=== PATIENT | female | born 1955 | race Caucasian/White ===

== ENCOUNTER 2024-03-07 16:02 | Emergency (ER) | payer BC ==
[2024-03-07 17:45] LABS: Absolute Eosinophils 0.1 K/uL (0-0.5); Absolute Lymphocytes (CBC) 1.3 K/uL (0.7-4.9); Absolute Monocytes 0.3 K/uL (0.1-1.3); Absolute Neutrophil 4.7 K/uL (1.8-8.0); Basophils % 0.4 % (0-1.3); Eosinophils % 1.7 % (0-4.4); Hematocrit 37.9 % (36.0-45.0); Hemoglobin 12.2 g/dL (12.0-15.0); Lymphocytes % 20.3 % (15.3-44.8); MCH 25.6 pg (27.0-35.0); MCHC 32.3 g/dL (32.0-36.0); MCV 79.3 fL (80-100); Monocytes % 4.9 % (3.3-12.3); Neutrophils % 72.7 % (41.7-73.7); Platelets 171 thou/uL (152-406); RBC Red Blood Cell Count 4.78 M/uL (3.86-4.86); Red Cell Distribution Width 19.7 % (12.1-15.2)
[2024-03-07] MEDS ORDERED: LORazepam 2 MG/ML VIAL ONE (17:48)
[2024-03-07] MEDS ORDERED: ONDANSETRON 4 MG/2 ML VIAL ONE (17:48)
[2024-03-07] MEDS ORDERED: NA CHLORIDE 0.9% 1,000 ML ONE (17:49)
[2024-03-07] MEDS ORDERED: chlordiazePOXIDE HCl 25 MG CAP ONE (17:49)
[2024-03-07 17:58] LABS: Sqamous Epithelial <5 /HPF (None Seen); Urine Bacteria <20 /HPF (<20); Urine Bilirubin 1+ (Negative); Urine Blood Negative (Negative); Urine Clarity Extremely Turbid (Clear); Urine Color Yellow (Yellow); Urine Culture Reflex Order NOT NEEDED; Urine Glucose NEGATIVE (Negative); Urine Ketones 2+ (Negative); Urine Microscopic Reflex YN ORDER UMIC; Urine Mucus Slight /HPF (None Seen); Urine Nitrite NEGATIVE (Negative); Urine Protein TRACE (Negative); Urine RBC <5 /HPF (None Seen); Urine Urobilinogen 2+ (Normal); Urine pH 5.5 (5.0-7.0)
[2024-03-07 18:10] LABS: Albumin 4.2 g/dL (3.4-5.0); Albumin/Globulin Ratio 1.2 (1.1-1.8); Bilirubin Total 1.2 mg/dL (0.2-1.0); Globulin 3.4 g/dL (2.3-3.5); Protein, Total 7.6 g/dL (6.4-8.2)
[2024-03-07] MEDS ORDERED: Ringers Lactate 1,000 ML IV ONE (18:29)
[2024-03-07] MEDS ORDERED: POTASSIUM 25 MEQ EFFERV TAB ONE (18:29)
--- NOTE | 2024-03-07 18:57 | EDPHYS ---
Physician Documentation [facility] Name: Barbie Hope Age: 68 yrs Sex: Female : 1955 Arrival Date: 03/07/2024 Time: 16:02 Bed 18 Private MD: ED Physician Amina Abel HPI: 03/07 16:53 This 68 yrs old Female presents to ER via Ambulatory with complaints of Vomiting, sp3 Decreased Appetite, Alcohol Withdrawal. 16:53 68-year-old female with history of hypertension and off-and-on alcoholism with recent sp3 bout of alcohol use after her 2 months ago now presents to the ED and withdrawal symptoms coupled with dehydration. She denies any pain but states she is extremely nauseated and is not able to hold p.o. intake down. She also reports decreased urine output. She denies any headache, fever, URI symptoms, chest pain, shortness of breath, abdominal pain, diarrhea, rash, bleeding, or any other signs or symptoms on ROS at this time.. Historical: - Allergies: 16:30 Morphine; db - PMHx: 16:30 Hypertensive disorder; db - PSHx: 16:30 COLON RESECTION; db - Immunization history:: Adult Immunizations unknown. - Infectious Disease History:: Denies. - Social history:: Smoking status: Patient denies any tobacco usage or history of. Patient uses alcohol. ROS: 16:54 Constitutional: Negative for fever, chills, and weight loss, Eyes: Negative for injury, sp3 pain, redness, and discharge, ENT: Negative for injury, pain, and discharge, Neck: Negative for injury, pain, and swelling, Cardiovascular: Negative for chest pain, palpitations, and edema, Respiratory: Negative for shortness of breath, cough, wheezing, and pleuritic chest pain, Back: Negative for injury and pain, MS/Extremity: Negative for injury and deformity, Skin: Negative for injury, rash, and discoloration, Psych: Negative for depression, anxiety, suicide ideation, homicidal ideation, and hallucinations, Allergy/Immunology: Negative for hives, rash, and allergies, Endocrine: Negative for neck swelling, polydipsia, polyuria, polyphagia, and marked weight changes, 16:54 All other systems are negative, Exam: 16:54 Constitutional: This is a well developed, well nourished patient who is awake, alert, sp3 and in no acute distress. Head/Face: Normocephalic, atraumatic. ENT: Nares patent. No nasal discharge, no septal abnormalities noted. External auditory canals are clear. Oropharynx with no redness, swelling, or masses, exudates, or evidence of obstruction, uvula midline. Mucous membranes moist. Neck: Trachea midline, no thyromegaly or masses palpated, and no cervical lymphadenopathy. Supple, full range of motion without nuchal rigidity, or vertebral point tenderness. No Meningismus. Chest/axilla: Normal chest wall appearance and motion. Nontender with no deformity. No lesions are appreciated. Respiratory: Lungs have equal breath sounds bilaterally, clear to auscultation and percussion. No rales, rhonchi or wheezes noted. No increased work of breathing, no retractions or nasal flaring. Abdomen/GI: Soft, non-tender, with normal bowel sounds. No distension or tympany. No guarding or rebound. No evidence of tenderness throughout. Back: No spinal tenderness. No costovertebral tenderness. Full range of motion. Skin: Warm, dry with normal turgor. Normal color with no rashes, no lesions, and no evidence of cellulitis. MS/ Extremity: Pulses equal, no cyanosis. Neurovascular intact. Full, normal range of motion. Neuro: Awake and alert, GCS 15, oriented to person, place, time, and situation. Cranial nerves II-XII grossly intact. Motor strength 5/5 in all extremities. Sensory grossly intact. Cerebellar exam normal. Normal gait. 16:54 Cardiovascular: Rate: tachycardic, 16:54 Psych: Patient anxious and appears to be withdrawing.. Vital Signs: 16:30 BP 158 / 89; Pulse 117; Resp 18; Temp 97.6; Pulse Ox 99% ; Weight 81.65 kg; Height 5 db ft. 6 in. ; 19:10 BP 144 / 84; Pulse 99; Resp 18; Pulse Ox 100% ; rg5 16:30 Body Mass Index 29.05 (81.65 kg, 167.64 cm) db MDM: 16:40 Medical Screening Exam initiated sp3 16:55 Data reviewed: vital signs, nurses notes, lab test result(s). ED course: 68-year-old sp3 female with generalized weakness and symptoms of withdrawal. Differential diagnosis includes alcohol withdrawal, electrolyte abnormality, dehydration, lactic acidosis, among others. Workup will include general labs including lactate, IV fluids and Ativan IV and Librium p.o. Disposition pending workup and patient course with possible discharge if patient is improved.. 18:23 ED course: Patient feels better after medication and interventions. Second liter of IV sp3 fluids have been ordered as lactated Ringer's. Lactate 1.1. Patient does have hyaline casts in her urine indicating probable dehydration. Potassium is also low. We will replenish the potassium and discharge patient on Librium once treatment is complete.. 03/07 16:50 Order name: CBC with Diff; Complete Time: 18:12 sp3 03/07 16:50 Order name: CMP; Complete Time: 18:12 sp3 03/07 16:50 Order name: Lipase; Complete Time: 18:12 sp3 03/07 16:50 Order name: Urinalysis w/ reflexes; Complete Time: 18:12 sp3 03/07 16:50 Order name: Lactate w/ 2H reflex if indic.; Complete Time: 18:12 sp3 03/07 16:50 Order name: IV Saline Lock; Complete Time: 17:41 sp3 03/07 16:50 Order name: Labs collected and sent; Complete Time: 17:41 sp3 Administered Medications: 17:15 Drug: Ativan IVP 1 mg IVP once Route: IVP; Site: right antecubital; db 18:44 Follow up: Response: No adverse reaction bp 17:15 Drug: Librium - chlordiazePOXIDE PO 50 mg PO once Route: PO; db 18:44 Follow up: Response: No adverse reaction bp 17:30 Drug: Ondansetron IVP 4 mg IVP once; over 2 minutes Route: IVP; Site: right antecubital;db 18:45 Follow up: Response: No adverse reaction bp 17:30 Drug: NS 0.9% IV 1000 ml IV at 1 bolus Per protocol; to be given as a bolus over 60 db minutes Route: IV; Rate: 1 bolus; Site: right antecubital; 19:10 Follow up: IV Status: Completed infusion; IV Intake: 1000ml rg5 18:30 Drug: Potassium PO Effervescent Tablet 50 mEq PO once; dissolve in 4 ounces of water or bp juice Route: PO; 18:45 Follow up: Response: No adverse reaction bp 18:30 Drug: Ringers - Lactated Ringers Solution IV 1000 ml IV at bolus bolus; to be given as bp a bolus over 30 minutes Route: IV; Rate: bolus; Site: right antecubital; 19:15 Follow up: IV Status: Completed infusion; IV Intake: 1000ml rg5 Disposition Summary: 03/07/24 18:57 Discharge Ordered Notes: Location: Home sp3 Condition: Stable sp3 Diagnosis - Alcohol withdrawal, dehydration, nausea sp3 Followup: sp3 - With: Private Physician - When: Upon discharge from the Emergency Department - Reason: Continuance of care Discharge Instructions: - Discharge Summary Sheet sp3 - Alcohol Withdrawal Syndrome sp3 Forms: - Medication Reconciliation Form sp3 - Antibiotic Education sp3 - Prescription Opioid Use sp3 - Patient Portal Instructions sp3 - Leadership Thank You Letter sp3 Prescriptions: - chlordiazepoxide HCl 25 mg Oral capsule - take 3 capsule ORAL route every 3 hours for 4 doses as needed for agitation; sp3 until symptoms of withdrawal controlled or stopped; 15 capsule; Refills: 0, Product Selection Permitted - ondansetron 8 mg Oral Tablet,disintegrating - take 1 tablet ORAL route every 12 hours; 15 tablet; Refills: 0, Product sp3 Selection Permitted Signatures: Dispatcher [employer] Sudhakar Dumont, RN RN Amina Stanford MD MD sp3 Karen Schmid RN RN db Gallardo, Rommel RN rg5 Corrections: (The following items were deleted from the chart) 16:30 16:30 Allergies: No Known Allergies; ulices elena
--- NOTE | 2024-03-07 18:57 | ER ---
Nurse's Notes [facility] Name: Barbie Hope Age: 68 yrs Sex: Female : 1955 Arrival Date: 03/07/2024 Time: 16:02 Bed 18 Private MD: Diagnosis: Alcohol withdrawal, dehydration, nausea Presentation: 03/07 16:28 Chief complaint: Patient states: NOT ABLE TO TOLERATE FOOD X 7 DAYS STATES DETOXING db FROM ALCOHOL X 7 DAYS. STATES UNABLE TO KEEP LIQUIDS DOWN. FEELS SHAKY AND WEAK. 16:30 Coronavirus screen: Client denies travel out of the [place] in the last 14 days. At this db time, the client does not indicate any symptoms associated with coronavirus-19. Ebola Screen: Patient negative for fever greater than or equal to 101.5 degrees Fahrenheit, and additional compatible Ebola Virus Disease symptoms Patient denies exposure to infectious person. Patient denies travel to an Ebola-affected area in the 21 days before illness onset. No symptoms or risks identified at this time. Initial Sepsis Screen: Does the patient meet any 2 criteria? No. Patient's initial sepsis screen is negative. Does the patient have a suspected source of infection? No. Patient's initial sepsis screen is negative. Risk Assessment: Do you want to hurt yourself or someone else? Patient reports no desire to harm self or others. Onset of symptoms was March 01, 2024. 16:30 Method Of Arrival: Ambulatory db 16:30 Acuity: CASSY 3 db 16:50 Acuity: CASSY 2 hb Triage Assessment: 16:33 General: Appears in no apparent distress. comfortable, Behavior is calm, cooperative. db Pain: Denies pain. Neuro: Level of Consciousness is awake, alert, obeys commands, Oriented to person, place, time, situation. Respiratory: Airway is patent Respiratory effort is even, unlabored, Respiratory pattern is regular, symmetrical. GI: Reports nausea, vomiting. Historical: - Allergies: 16:30 Morphine; db - PMHx: 16:30 Hypertensive disorder; db - PSHx: 16:30 COLON RESECTION; db - Immunization history:: Adult Immunizations unknown. - Infectious Disease History:: Denies. - Social history:: Smoking status: Patient denies any tobacco usage or history of. Patient uses alcohol. Screenin:04 [facility] ED Fall Risk Assessment (Adult) History of falling in the last 3 months, bp including since admission No falls in past 3 months (0 pts) Confusion or Disorientation No (0 pts) Intoxicated or Sedated No (0 pts) Impaired Gait No (0 pts) Mobility Assist Device Used No (0 pt) Altered Elimination No (0 pt) Score/Fall Risk Level 0 - 2 = Low Risk Oriented to surroundings. Abuse screen: Denies threats or abuse. Denies injuries from another. Nutritional screening: No deficits noted. Tuberculosis screening: No symptoms or risk factors identified. Assessment: 16:33 General: Appears distressed, Behavior is cooperative, appropriate for age, anxious. bp Pain: Denies pain. Neuro: Level of Consciousness is awake, alert, obeys commands, Oriented to Appropriate for age Reports weakness GENERALIZED. Cardiovascular: Rhythm is sinus tachycardia. Respiratory: No deficits noted. GI: Reports nausea. GI: Abdomen is non-distended. : No signs and/or symptoms were reported regarding the genitourinary system. EENT: No deficits noted. Derm: No deficits noted. Musculoskeletal: No deficits noted. 18:30 Reassessment: Patient appears in no apparent distress at this time. Patient is alert, bp oriented x 3, equal unlabored respirations, skin warm/dry/pink. DC ON HOLD FOR IVF COMPLETION. 19:10 General: Appears in no apparent distress. comfortable, Behavior is calm, cooperative, rg5 appropriate for age. Pain: Denies pain. Neuro: Level of Consciousness is awake, alert, obeys commands. Cardiovascular: Patient's skin is warm and dry. Respiratory: Airway is patent Trachea midline Respiratory effort is even, unlabored, Respiratory pattern is regular, symmetrical. GI: Abdomen is round non-distended. : No signs and/or symptoms were reported regarding the genitourinary system. EENT: No deficits noted. Derm: Skin is intact, Skin is dry, Skin is normal, Skin temperature is warm. Musculoskeletal: Circulation, motion, and sensation intact. Range of motion: intact in all extremities. Vital Signs: 16:30 BP 158 / 89; Pulse 117; Resp 18; Temp 97.6; Pulse Ox 99% ; Weight 81.65 kg; Height 5 db ft. 6 in. ; 19:10 BP 144 / 84; Pulse 99; Resp 18; Pulse Ox 100% ; rg5 16:30 Body Mass Index 29.05 (81.65 kg, 167.64 cm) db ED Course: 16:05 Patient arrived in ED. ra3 16:05 Bernard Ventura MD is Attending Physician. ec2 16:25 Attending Physician role handed off by Bernard Ventura MD sp3 16:25 Amina Abel MD is Attending Physician. sp3 16:29 Arm band placed on Patient placed in an exam room. db 16:32 Triage completed. db 16:36 Sudhakar Márquez, SAVANNAH is Primary Nurse. bp 17:41 Inserted saline lock: 22 gauge in right antecubital area, using aseptic technique. nh2 Blood collected. Flushed with 10 mL NS. 17:41 CBC with Diff Sent. nh2 17:41 CMP Sent. nh2 17:41 Lipase Sent. nh2 17:41 Urinalysis w/ reflexes Sent. nh2 17:41 Lactate w/ 2H reflex if indic. Sent. nh2 19:04 Patient has correct armband on for positive identification. bp 19:10 Provided Education on: post er care. rg5 19:10 No provider procedures requiring assistance completed. rg5 19:47 IV discontinued, bleeding controlled, No redness/swelling at site. Pressure dressing rg5 applied. Administered Medications: 17:15 Drug: Ativan IVP 1 mg IVP once Route: IVP; Site: right antecubital; db 18:44 Follow up: Response: No adverse reaction bp 17:15 Drug: Librium - chlordiazePOXIDE PO 50 mg PO once Route: PO; db 18:44 Follow up: Response: No adverse reaction bp 17:30 Drug: Ondansetron IVP 4 mg IVP once; over 2 minutes Route: IVP; Site: right antecubital;db 18:45 Follow up: Response: No adverse reaction bp 17:30 Drug: NS 0.9% IV 1000 ml IV at 1 bolus Per protocol; to be given as a bolus over 60 db minutes Route: IV; Rate: 1 bolus; Site: right antecubital; 19:10 Follow up: IV Status: Completed infusion; IV Intake: 1000ml rg5 18:30 Drug: Potassium PO Effervescent Tablet 50 mEq PO once; dissolve in 4 ounces of water or bp juice Route: PO; 18:45 Follow up: Response: No adverse reaction bp 18:30 Drug: Ringers - Lactated Ringers Solution IV 1000 ml IV at bolus bolus; to be given as bp a bolus over 30 minutes Route: IV; Rate: bolus; Site: right antecubital; 19:15 Follow up: IV Status: Completed infusion; IV Intake: 1000ml rg5 Medication: 19:10 VIS not applicable for this client. rg5 Intake: 19:10 IV: 1000ml; Total: 1000ml. rg5 19:15 IV: 1000ml; Total: 2000ml. rg5 Outcome: 18:57 Discharge ordered by MD. sp3 19:47 Discharged to home via wheelchair, rg5 19:47 Condition: stable 19:47 Discharge instructions given to patient, family, Instructed on discharge instructions, follow up and referral plans. Demonstrated understanding of instructions, follow-up care, medications, Prescriptions given X 2, 19:55 Patient left the ED. rg5 Signatures: Lana Campa RN RN Sudhakar Bethea RN RN Amina Stanford MD MD sp3 Karen Schmid RN RN db Corral, Edwin, MD MD ec2 Sharon Deleon ra3 Matt Ambriz RN RN rg5 Marcos Montgomery Jr [facility] Corrections: (The following items were deleted from the chart) 16:30 16:30 Allergies: No Known Allergies; ulices db
[2024-03-07 20:18] VITALS: TEMP 97.6
[2024-03-07 20:21] VITALS: BP 144/84; O2SAT 100
== END 2024-03-07 19:55 | disposition home or self-care (01) ==
LOC: ER 16:02
DX: F10.239 Alcohol dependence with withdrawal, unspecified (principal); E86.0 Dehydration; R11.0 Nausea; I10 Essential (primary) hypertension; Z88.5 Allergy status to narcotic agent
CPT/HCPCS: 36415; 80053; 81001; 83605; 83690; 85025; 96361; 96365; 96375; 99284; J2405; J7030; J7120

== ENCOUNTER 2024-03-11 19:47 | Emergency (ER) | payer BC ==
[2024-03-11] MEDS ORDERED: NA CHLORIDE 0.9% 1,000 ML ONE (20:46)
[2024-03-11] MEDS ORDERED: DIAZEPAM 2 MG TABLET ONE (20:46)
[2024-03-11 20:55] LABS: Absolute Lymphocytes (CBC) 0.2 K/uL (0.7-4.9); Absolute Monocytes 0.3 K/uL (0.1-1.3); Absolute Neutrophil 1.4 K/uL (1.8-8.0); Basophils % 0.4 % (0-1.3); Eosinophils % 0.6 % (0-4.4); Hematocrit 31.6 % (36.0-45.0); Lymphocytes % 9.9 % (15.3-44.8); MCHC 31.7 g/dL (32.0-36.0); MCV 81.9 fL (80-100); MPV 8.5 fL (7.6-11.3); Monocytes % 15.4 % (3.3-12.3); Neutrophils % 73.7 % (41.7-73.7); Nucleated Red Blood Cells % 0.2 % (0-0); Platelets 99 thou/uL (152-406); RBC Red Blood Cell Count 3.86 M/uL (3.86-4.86); Red Cell Distribution Width 22.8 % (12.1-15.2)
[2024-03-11 20:56] LABS: Anisocytosis 2+; Blood Morphology Comment NOTED (NOT SEEN); Platelet Estimate DECR; White Blood Cell Scan OK (OK)
[2024-03-11 21:00] LABS: PT Prothrombin Time 11.5 SECONDS (9.4-12.5); PTT, Activated Partial Thromb 28.2 SECONDS (24.3-36.9); Protime INR 1.03
[2024-03-11 21:09] LABS: Anion Gap 7.9 mEq/L (5.0-15.0); Potassium 3.9 mEq/L (3.5-5.1)
--- NOTE | 2024-03-11 21:19 | RAD REPORT ---
EXAMINATION: CT HEAD WITHOUT CONTRAST CT CERVICAL SPINE WITHOUT CONTRAST CLINICAL INDICATION: Head and neck injury status post fall. Head and neck pain TECHNIQUE: Axial CT images from the skull base to the vertex without intravenous contrast. Axial CT i mages through the cervical spine were obtained without intravenous contrast. Sagittal and coronal reformatted images were created from the data set. Coronal and sagittal reformatted images were creat ed from the data set. One or more of the following dose reduction techniques were used: Automated exposure control, adjustment of the mA and/or kV according to patient size, and/or iterative reconstr uction. Unless otherwise specified, incidental findings do not require dedicated imaging follow-up. [id number]. Comparison: none FINDINGS: Left scalp hematoma. An intracranial bleed is not seen. Ventricles are normal in caliber. No significant hypodensity within the brain No extra-axial fluid collection. No fluid within the sinuses/mastoids No fracture or dislocation is seen involving the cervical spine. Mild anterior subluxation C3 on C4. Mild posterior subluxation C4 on C5, C5 on C6 and C6 on C7. No si gnificant soft tissue swelling noted. Spondylosis mid cervical spine. IMPRESSION: No acute intracranial abnormality noted A cervical fracture is not seen. If the patient continues to have symptoms to suggest acute LINEN MANAGER/spinal/ligamentous pathology then MRI would be recommended
--- NOTE | 2024-03-11 22:01 | EDPHYS ---
Physician Documentation [facility] Name: Barbie Hope Age: 68 yrs Sex: Female : 1955 Arrival Date: 03/11/2024 Time: 19:47 Bed 22 Private MD: ED Physician Reynaldo Blum HPI: 03/11 20:16 This 68 yrs old Female presents to ER via Ambulatory with complaints of Head Injury rn With LOC-Adult, Headache, Dizziness, General Weakness, Vomiting. 20:16 The patient or guardian reports injury. The complaints affect the left occipital area. rn Onset: The symptoms/episode began/occurred 10 day(s) ago. Severity of symptoms: At their worst the symptoms were mild, in the emergency department the symptoms are unchanged. The patient has not experienced similar symptoms in the past. Patient reports drinking heavily last week, is alcoholic, fell twice and hit head 10 days ago. Since then has noticed a bump to the left posterior scalp and her hairdresser noticed ecchymosis posterior to the left ear. Reports headache, generalized weakness, tremor, vomiting, blurred vision and confusion since head injury. No blood thinners. No LOC at the time. Fall from same level.. Historical: - Allergies: 19:59 Morphine; hb - PMHx: 19:59 Hypertensive disorder; hb - PSHx: 19:59 colon resection; hb - Immunization history:: Adult Immunizations up to date. - Infectious Disease History:: Denies. - Immunization history: Last tetanus immunization: unknown. - Social history:: Smoking status: Patient denies any tobacco usage or history of. - Family history:: not pertinent. - Hospitalizations: : No recent hospitalization is reported. ROS: 20:16 Constitutional: Negative for fever, chills, and weight loss, Eyes: Negative for injury, rn pain, redness, and discharge, ENT: Negative for injury, pain, and discharge, Neck: Positive for mild neck pain Cardiovascular: Negative for chest pain, palpitations, and edema, Respiratory: Negative for shortness of breath, cough, wheezing, and pleuritic chest pain, Abdomen/GI: Positive for nausea Back: Negative for injury and pain, : Negative for injury, bleeding, discharge, and swelling, MS/Extremity: Negative for injury and deformity, Skin: Negative for injury, rash, and discoloration, Neuro: Positive for headache and generalized weakness Exam: 20:16 Constitutional: This is a well developed, well nourished patient who is awake, alert, rn and in no acute distress. Head/Face: Normocephalic, left posterior scalp hematoma with ecchymosis postauricular left side. Eyes: Pupils equal round and reactive to light, extra-ocular motions intact. Lids and lashes normal. Conjunctiva and sclera are non-icteric and not injected. Cornea within normal limits. Periorbital areas with no swelling, redness, or edema. Neck: Mild pericervical neck tenderness. Cardiovascular: Regular rate and rhythm. No pulse deficits. Respiratory: No increased work of breathing, no retractions or nasal flaring. Abdomen/GI: Soft, non-tender MS/ Extremity: Pulses equal, no cyanosis. Neurovascular intact. Full, normal range of motion. Equal circumference. Neuro: Awake and alert, GCS 15, oriented to person, place, time, and situation. Cranial nerves II-XII grossly intact. Motor strength 4/5 in all extremities. Sensory grossly intact. Fine tremor Vital Signs: 19:57 BP 143 / 86; Pulse 100; Resp 18; Temp 97.4(TE); Pulse Ox 100% on R/A; Weight 82.55 kg; hb Height 5 ft. 6 in. ; Pain 9/10; 21:30 BP 151 / 78; Pulse 80; Resp 18; Pulse Ox 98% on R/A; Pain 0/10; br2 22:28 BP 170 / 87; Pulse 79; Resp 18; Pulse Ox 98% on R/A; br2 19:57 Body Mass Index 29.38 (82.55 kg, 167.64 cm) hb 19:57 Pain Scale: Adult hb 21:30 Pain Scale: Adult br2 Radha Coma Score: 20:16 Eye Response: spontaneous(4). Motor Response: obeys commands(6). Verbal Response: rn oriented(5). Total: 15. 20:30 Eye Response: spontaneous(4). Motor Response: obeys commands(6). Verbal Response: br2 oriented(5). Total: 15. 21:59 Eye Response: spontaneous(4). Motor Response: obeys commands(6). Verbal Response: rn oriented(5). Total: 15. Trauma Score (Adult): 20:30 Eye Response: spontaneous(1); Verbal Response: oriented(1); Motor Response: obeys br2 commands(2); Systolic BP: > 89 mm Hg(4); Respiratory Rate: 10 to 29 per min(4); Oran Score: 15; Trauma Score: 12 MDM: 19:59 Medical Screening Exam initiated rn 21:59 Differential diagnosis: Contusion of Hematoma on Intracranial bleed- Concussion rn cerebral contusion. Data reviewed: vital signs, nurses notes, radiologic studies, CT scan, and as a result, I will discharge patient. Counseling: I had a detailed discussion with the patient and/or guardian regarding the historical points, exam findings, and any diagnostic results supporting the discharge/admit diagnosis, lab results, radiology results, the need for outpatient follow up, to return to the emergency department if symptoms worsen or persist or if there are any questions or concerns that arise at home. Special discussion: I discussed with the patient/guardian in detail that at this point there is no indication for admission to the hospital. It is understood, however, that if the symptoms persist or worsen the patient needs to return immediately for re-evaluation. Based on the history and exam findings, there is no indication for further emergent testing or inpatient evaluation. I discussed with the patient/guardian the need to see the primary care provider for further evaluation of the symptoms. ED course: No acute findings in CT head. Did talk to patient about abnormally low WBC and platelet. Will follow-up with PCP for further investigation to rule out bone marrow problem but most likely secondary to alcoholism.. 03/11 20:05 Order name: CBC with Diff; Complete Time: 21:33 rn 03/11 20:05 Order name: Basic Metabolic Panel; Complete Time: 21:33 rn 03/11 20:05 Order name: Protime (+inr); Complete Time: 21:33 rn 03/11 20:05 Order name: Ptt, Activated; Complete Time: 21:33 rn 03/11 20:56 Order name: CBC Smear Scan; Complete Time: 21:33 EDMS 03/11 20:05 Order name: CT Head C Spine; Complete Time: 21:33 rn 03/11 20:05 Order name: IV Start; Complete Time: 20:55 rn Administered Medications: 20:55 Drug: NS 0.9% IV 1000 ml IV at 1000 ml once; to be given as a bolus over 60 minutes br2 Route: IV; Rate: 1000 ml; Site: left forearm; 21:55 Follow up: IV Status: Completed infusion; IV Intake: 1000ml br2 20:55 Drug: Diazepam PO 2 mg PO once Route: PO; br2 21:30 Follow up: Response: No adverse reaction br2 Disposition Summary: 03/11/24 22:01 Discharge Ordered Notes: Location: Home rn Problem: new rn Symptoms: have improved rn Condition: Stable rn Diagnosis - Unspecified injury of head, initial encounter rn - Concussion without loss of consciousness rn - Postconcussional syndrome rn Followup: rn - With: Private Physician - When: As needed - Reason: Recheck today's complaints, Re-evaluation by your physician Discharge Instructions: - Discharge Summary Sheet rn - Head Injury, Adult rn - Post-Concussion Syndrome rn Forms: - Medication Reconciliation Form rn - Antibiotic planner internship - Prescription Opioid Use rn - Patient Portal Instructions rn - Leadership Thank You Letter rn Signatures: Dispatcher [employer] EDMS Reynaldo Blum MD MD rn Baxter, Heather, RN RN hb Riddle, Belinda, RN RN br2 Corrections: (The following items were deleted from the chart) 20:06 20:06 CBC+H.LAB.BRZ ordered. EDMS EDMS 20:06 20:06 BASIC METABOLIC PANEL+C.LAB.BRZ ordered. EDMS EDMS 20:06 20:06 PROTIME (+INR)+COAG.LAB.BRZ ordered. EDMS EDMS 20:06 20:06 PTT, ACTIVATED+COAG.LAB.BRZ ordered. EDMS EDMS
--- NOTE | 2024-03-11 22:01 | ER ---
Nurse's Notes [facility] Name: Barbie Hope Age: 68 yrs Sex: Female : 1955 Arrival Date: 03/11/2024 Time: 19:47 Bed 22 Private MD: Diagnosis: Unspecified injury of head, initial encounter;Concussion without loss of consciousness;Postconcussional syndrome Presentation: 03/11 19:57 Chief complaint: Fell and hit head while drinking a week ago, concerned about bruising hb behind left ear, N/V, and persistent headache and N/V. Coronavirus screen: At this time, the client does not indicate any symptoms associated with coronavirus-19. Ebola Screen: No symptoms or risks identified at this time. Initial Sepsis Screen: Does the patient meet any 2 criteria? No. Patient's initial sepsis screen is negative. Does the patient have a suspected source of infection? No. Patient's initial sepsis screen is negative. Risk Assessment: Do you want to hurt yourself or someone else? Patient reports no desire to harm self or others. Onset of symptoms was March 11, 2024. 19:57 Method Of Arrival: Ambulatory hb 19:57 Acuity: CASSY 3 hb 22:30 Care prior to arrival: None. Mechanism of Injury: Fall an unknown distance. Trauma br2 event details: Injury occurred in the [facility]. Historical: - Allergies: 19:59 Morphine; hb - PMHx: 19:59 Hypertensive disorder; hb - PSHx: 19:59 colon resection; hb - Immunization history:: Adult Immunizations up to date. - Infectious Disease History:: Denies. - Immunization history: Last tetanus immunization: unknown. - Social history:: Smoking status: Patient denies any tobacco usage or history of. - Family history:: not pertinent. - Hospitalizations: : No recent hospitalization is reported. Screenin:30 [facility] ED Fall Risk Assessment (Adult) History of falling in the last 3 months, br2 including since admission Yes- fall prone (multiple falls) (3 pts) Confusion or Disorientation No (0 pts) Intoxicated or Sedated No (0 pts) Impaired Gait No (0 pts) Mobility Assist Device Used No (0 pt) Altered Elimination No (0 pt) Score/Fall Risk Level 0 - 2 = Low Risk Oriented to surroundings, Maintained a safe environment. Abuse screen: Denies threats or abuse. Denies injuries from another. Nutritional screening: No deficits noted. Tuberculosis screening: No symptoms or risk factors identified. Primary Survey: 20:30 A: The client is awake and alert. The airway is patent. The client responds to verbal br2 stimuli. Airway: patent, Patient intubated prior to arrival. Breathing/Chest: Spontaneous respiratory effort, equal unlabored respirations, breath sounds clear bilaterally, regular pattern, symmetrical chest rise and fall. Respiratory effort: spontaneous, unlabored, Breath sounds: clear, bilaterally. Circulation: No external hemorrhage present. Regular and strong central pulse, skin warm/dry/normal color. Skin color: pink. Disability Pupils are equal, round, reactive to light and accommodation. Client is alert. Exposure/Environment: A warming method has been applied: A warm blanket has been provided to the patient. 20:30 Reassessment Breathing: Spontaneous respiratory effort, equal unlabored respirations, br2 breath sounds clear bilaterally, regular pattern with symmetrical chest rise and fall. 21:08 NO uncontrolled hemorrhage observed. br2 Assessment: 20:30 Reassessment: Patient and/or family updated on plan of care and expected duration. Pain br2 level reassessed. Patient is alert, oriented x 3, equal unlabored respirations, skin warm/dry/pink. General: Appears in no apparent distress. comfortable, Behavior is calm, cooperative. 20:30 Pain: Complains of pain in occipital area Pain does not radiate. Pain currently is 9 br2 out of 10 on a pain scale. Neuro: Hamilton Agitation-Sedation Scale (RASS): 0 - Alert and Calm Level of Consciousness is awake, alert, Oriented to person, place, time, situation. Neuro: Reports blurred vision dizziness, headache occipital area. Cardiovascular: Capillary refill < 3 seconds. Cardiovascular: Respiratory: Airway is patent Respiratory effort is even, unlabored, Respiratory pattern is regular, symmetrical. GI: Reports nausea, vomiting. Vital Signs: 19:57 BP 143 / 86; Pulse 100; Resp 18; Temp 97.4(TE); Pulse Ox 100% on R/A; Weight 82.55 kg; hb Height 5 ft. 6 in. ; Pain 9/10; 21:30 BP 151 / 78; Pulse 80; Resp 18; Pulse Ox 98% on R/A; Pain 0/10; br2 22:28 BP 170 / 87; Pulse 79; Resp 18; Pulse Ox 98% on R/A; br2 19:57 Body Mass Index 29.38 (82.55 kg, 167.64 cm) hb 19:57 Pain Scale: Adult hb 21:30 Pain Scale: Adult br2 Radha Coma Score: 20:16 Eye Response: spontaneous(4). Motor Response: obeys commands(6). Verbal Response: rn oriented(5). Total: 15. 20:30 Eye Response: spontaneous(4). Motor Response: obeys commands(6). Verbal Response: br2 oriented(5). Total: 15. 21:59 Eye Response: spontaneous(4). Motor Response: obeys commands(6). Verbal Response: rn oriented(5). Total: 15. Trauma Score (Adult): 20:30 Eye Response: spontaneous(1); Verbal Response: oriented(1); Motor Response: obeys br2 commands(2); Systolic BP: > 89 mm Hg(4); Respiratory Rate: 10 to 29 per min(4); Radha Score: 15; Trauma Score: 12 ED Course: 19:48 Patient arrived in ED. im 19:59 Triage completed. hb 19:59 Reynaldo Blum MD is Attending Physician. rn 19:59 Arm band placed on. hb 20:17 Lesia Pittman, SAVANNAH is Primary Nurse. br2 20:30 Patient has correct armband on for positive identification. Placed in gown. Bed in low br2 position. Call light in reach. FAMILY AT BEDSIDE. Provided Education on: PLAN OF CARE. 20:30 Inserted saline lock: 20 gauge in right forearm, using aseptic technique. Blood br2 collected. Flushed with 10 mL NS. 20:30 Patient maintains SpO2 saturation greater than 95% on room air. br2 20:55 Protime (+inr) Sent. br2 20:55 Ptt, Activated Sent. br2 20:55 Basic Metabolic Panel Sent. br2 20:55 CBC with Diff Sent. br2 21:08 CT Head C Spine In Process Unspecified. EDMS 22:28 IV discontinued, intact, bleeding controlled, No redness/swelling at site. Pressure br2 dressing applied. 22:29 No provider procedures requiring assistance completed. br2 Administered Medications: 20:55 Drug: NS 0.9% IV 1000 ml IV at 1000 ml once; to be given as a bolus over 60 minutes br2 Route: IV; Rate: 1000 ml; Site: left forearm; 21:55 Follow up: IV Status: Completed infusion; IV Intake: 1000ml br2 20:55 Drug: Diazepam PO 2 mg PO once Route: PO; br2 21:30 Follow up: Response: No adverse reaction br2 Medication: 20:30 VIS not applicable for this client. br2 Intake: 20:30 PO: 30ml (Water); Total: 30ml. br2 21:55 IV: 1000ml; Total: 1030ml. br2 Outcome: 21:57 Patient's length of stay in the Emergency Department was greater than [address] resultsPatient's length of stay extended due to 22:01 Discharge ordered by . rn 22:30 Discharged to home ambulatory, br2 22:30 Condition: improved 22:30 Discharge instructions given to patient, Instructed on discharge instructions, follow up and referral plans. Demonstrated understanding of instructions, follow-up care, 03/12 00:56 Patient left the ED. vc1 Signatures: Dispatcher [employer] Reynaldo Durham MD MD rn Baxter, Heather, RN RN hb Calcote, Vanessa, RN RN vc1 Nyasia Florez Belinda RN RN br2
[2024-03-12 01:25] VITALS: TEMP 97.4
[2024-03-12 01:27] VITALS: O2SAT 98
[2024-03-12 01:28] VITALS: BP 170/87
== END 2024-03-12 00:56 | disposition home or self-care (01) ==
LOC: ER 19:47
DX: S09.90XA Unspecified injury of head, initial encounter (principal); F07.81 Postconcussional syndrome; I10 Essential (primary) hypertension; Z88.5 Allergy status to narcotic agent
CPT/HCPCS: 36415; 70450; 72125; 80048; 85025; 85610; 85730; 96360; 99284; J7030